=== PATIENT | female | born 1940 | race Caucasian/White ===

== ENCOUNTER → 2017-12-05 07:49 | Outpatient (CLI) | payer MEDICARE, OTHER, SELFPAY ==
--- NOTE | 2017-12-05 | DI.MRI.S_ITS ---
PROCEDURE: MR KNEE LT WO CON INDICATIONS: LEFT KNEE OSTEOARTHRITIS TECHNIQUE: Noncontrast sagittal PD fast spin echo and T2 fast spin echo with fat saturation, sagittal 3-D FLASH with fat saturation; coronal T1 spin echo and PD fast spin echo with fat saturation, and axial PD fast spin echo with fat saturation through the knee. COMPARISON: [facility], MR, KNEE W/O CONTRAST(LT), 04/13/2011, 14:09. FINDINGS: Image quality: Diagnostic. Bones and joint: There is no acute fracture or dislocation. No suspicious osseous lesions are evident. However, there is an enchondroma identified involving the distal femoral shaft, which measures up to approximately 11 mm in diameter, which is unchanged since the prior examination. No suspicious imaging characteristics are present. There is a large knee joint effusion with an associated prominent Mendoza's cyst. Mild edema about the Mendoza's cyst is present. No large intra-articular joint bodies are identified. There are moderate degenerative changes of the left knee, most pronounced within the lateral compartment. The degree of degenerative changes have increased in the interim with a moderate to large chronic appearing full thickness defects of the hyaline articular cartilage present. Developing degenerative marrow edema is evident along the lateral femoral condyle and the lateral tibial plateau. Smaller defects of the hyaline articular cartilage appear to be present within the patellofemoral and medial tibiofemoral compartments. Cruciate ligaments: The anterior cruciate ligament demonstrates increased signal and heterogeneity. No full-thickness tear is evident. The posterior cruciate ligament is intact and emonstrate slight increased signal. Menisci: There is a complex oblique tear identified involving the undersurface of the posterior horn of the lateral meniscus with moderate grade partial-thickness tearing of the posterior meniscal root. This tear transitions to a horizontal tear through the body of the medial meniscus and subsequently into an additional oblique tear that involves the femoral articular surface along the anterior horn. Mild extrusion of the body of the meniscus is present. There is an oblique tear identified involving the body and posterior horn of the medial meniscus that involves the inferior articular surface. No detached medial meniscal tears are evident. Medial structures: The medial collateral ligament is intact. The semimembranosus tendon insertion is thickened and edematous at its insertion. The imaged portions of the pes anserinus tendons are unremarkable. No significant fluid is contained within the pes anserinus bursa. Lateral structures: The popliteal tendon is thickened and edematous. The lateral collateral ligament proper (fibular collateral ligament) and the proximal tibiofibular ligaments are intact. The distal aspect of the biceps femoris tendon and the iliotibial band are intact. Anterior structures: The quadriceps and patellar tendons are intact. There is mild increased signal identified involving the proximal and distal margins of the patellar tendon. There is edema identified within the prepatellar soft tissues. There is mild edema in the infrapatellar fat pad. IMPRESSION: 1. Moderate degenerative changes of the left knee are most prominent within the lateral compartment, which have progressed in the interim. 2. Complex tearing of the medial and lateral menisci as described. 3. Moderate grade partial-thickness tearing of the anterior cruciate ligament. There may be a sprain of the posterior cruciate ligament. No full-thickness tears. 4. Moderate distal semimembranosus tendinopathy. 5. Mild patellar tendinopathy. 6. Large knee joint effusion with an associated prominent leaking Mendoza's cyst. 7. Unchanged benign enchondroma of the distal femoral shaft. Dictated by: Pradip Ayoub M.D. on 12/05/2017 at 10:00 Approved by: Pradip Ayoub M.D. on 12/05/2017 at 10:09
== END ==
PROVIDERS: PCP Family Medicine; Visit Provider Orthopaedic Surgery
DX: M17.12 Unilateral primary osteoarthritis, left knee (principal); S83.242A Other tear of medial meniscus, current injury, left knee, initial encounter; S83.282A Other tear of lateral meniscus, current injury, left knee, initial encounter; M25.462 Effusion, left knee
CPT/HCPCS: 73721

== ENCOUNTER 2018-01-03 16:21 | Observation (INO) | payer MEDICARE, OTHER, SELFPAY ==
[2017-12-20 09:55] VITALS: BMI 27.1
[2018-01-02] VITALS (13 sets, daily range): BP systolic 92–159; BP diastolic 52–98; PULSE 61–96; RESP 12–20; TEMP 36.3–36.9; O2SAT 93–98; BMI 27.1
[2018-01-02] MEDS: CELECOXIB 200 MG CAPSULE 400 MG PO (07:27)
[2018-01-02] MEDS: LACTATED RINGERS 1,000 ML 42 ML IV ×2 (07:45→09:18)
[2018-01-02] MEDS: MIDAZOLAM 2 MG/2 ML VIAL IV (07:52)
[2018-01-02] MEDS: fentaNYL 100 MCG/2 ML INJ 50 MCG IV (07:52)
--- NOTE | 2018-01-02 07:57 | PM.PREOP ---
Pre-operative Note Interval Note Pre-op Check: History & Physical Reviewed by Physician
--- NOTE | 2018-01-02 08:00 | P.OP_ITS ---
Operative Date/Time/Diagnoses - Date of procedure: 01/02/18 Time of procedure: 09:34 Pre-op diagnosis: Left knee osteoarthritis Post-op diagnosis: same Procedure & Clinicians Procedure: Left total knee arthroplasty Same procedure as scheduled: Yes Indications: The patient presents today for total knee arthroplasty after failure of conservative treatment. The nature of the procedure including the risks and benefits, alternatives, postoperative course and expected outcome were discussed and all questions answered. Consent was obtained. Operative site confirmed and marked. Surgeon: Russel Flaherty Plant Protection Guard: Jorge Rush Anesthesia Type: Spinal, Peripheral nerve block and Local Operative Notes Findings: Osteoarthritis primarily affecting the lateral compartment. Closure Type: primary Specimen(s): none sent Implants & Drains: Ambrose [employer] BCS: 5 femoral component, 3 tibial component, 9 mm BCS polyethylene tray and 32 x 9 mm round patella Applied: implant(s) Estimated Blood Loss (mL): 25 Blood products transfused: none Tourniquet time (min): 21 Procedure in detail: The patient was taken to the operative suite and placed under spinal anesthesia with an adductor nerve block. The patient was given prophylactic antibiotics prior to surgery. The patient was also given tranexamic acid, 1 g, just prior to surgery for postoperative hemostasis. [The lateral knee was prepped and the joint injected with 20 mL of 1% Lidocaine with epinephrine. ] The knee was then prepped and draped in usual sterile fashion. The leg was exsanguinated with an Esmarch dressing and the tourniquet raised to [250] torr. A 15 cm anterior incision was made. Next a medial trivector arthrotomy was made. The extensor mechanism was marked to ensure accurate repair. Initial exposing dissection was carried out medially and laterally. The knee was then extended and the patellar thickness was measured and a cut made removing approximately [9] mm of bone[ with a goal of restoring normal patellar thickness ]. The patella was then sized and drilled. Some excess lateral bone was excised and the patellofemoral ligament released. The tourniquet was then released. The knee was then flexed and the [employer] femoral guide was placed. The anterior pins were placed and the distal rotation holes drilled. The distal cutting guide was placed and the templated distal femoral cut was made. The templating cutting block was then placed and the anterior, posterior and chamfer cuts made. The [employer] tibial guide was placed and the alignment checked along the axis of the proximal tibial with a carlos a. The proximal tibial cut was then made with an oscillating saw. All meniscus and bony debris was then removed. Flexion extension gaps were checked. [No specific balancing was required other than routine exposure and removal of osteophytes]. The soft tissues were then injected with a combination of [20 mL of half percent Marcaine with epinephrine and 20 mL of Exparel]. The trial components were then placed. The knee went into full extension and flexion beyond 120?. There was [excellent] medial- lateral balance throughout motion. Patellar tracking was [excellent]. The trial components were removed and size is confirmed for the final implants. The knee was then exsanguinated with an Esmarch dressing and the tourniquet reapplied for cementing. The knee was cleansed with Pulsavac irrigation and dried. The final components were cemented in with high viscosity vacuum mixed bone cement with antibiotics. The knee was held in extension and the patellar clamp until the cement had adequately cured. The knee was then irrigated with dilute Betadine solution. The extensor mechanism was closed with 5 interrupted #1 Vicryl sutures in 90 degrees of flexion. [The joint was then injected with a combination of 1 g of tranexamic acid and 20 mL of quarter percent Marcaine with epinephrine.] The subcutaneous tissue was closed with 2-0 Vicryl. The skin was closed with [ ailyn and surgical adhesive]. [ An Aquacell] dressing and Bobby wrap were then applied. Complications: none Condition: stable Disposition: PACU Plan for aftercare: Routine protocol for total knee arthroplasty. Aspirin for DVT prophylaxis.
[2018-01-02] MEDS: CEFAZOLIN 2 GM/100 ML FROZ.PIGGY IV ×2 (08:01→16:15)
--- NOTE | 2018-01-02 08:07 | SUR.PREOP ---
Block start time [0750] . Monitoring initiated and maintained throughout procedure. Oxygen and medications given per anesthesiologist instructions. Patient remained stable throughout procedure, no adverse reactions noted. Block end time [0759 Tolerated well, remained arrousable to verbal stimuli with stable vital signs.].
[2018-01-02] MEDS: LIDOCAINE 1% W/EPI INJ 20 ML INJ (08:20)
--- NOTE | 2018-01-02 08:37 | SUR.OPER ---
Supine on padded OR bed. Pillow under head, arms secured on padded armboards <90 degree abduction. Safety belt across torso. Non-operative leg secured with tape over blanket over lower leg. Operative leg secured in [place] positioner. Foam padded brace at thigh of operative leg.
[2018-01-02] MEDS: BUPIVACAINE 0.5% W/ EPI (PF) 20 ML, BUPIVACAINE LIPOSOME 266 MG, SODIUM CHLORIDE 0.9% 8... INJ (08:52)
[2018-01-02] MEDS: BUPIVACAINE 0.5% W/ EPI (PF) 10 ML, TRANEXAMIC ACID 1,000 MG, SODIUM CHLORIDE 0.9% 20 ML INJ (09:02)
--- NOTE | 2018-01-02 09:42 | DI.RAD.S_ITS ---
PROCEDURE: XR KNEE LT 1TO2V INDICATIONS: 77 year-old female status post left knee replacement. TECHNIQUE: 2 postoperative view(s) of the knee acquired. COMPARISON: [facility] [place] Manuel, XR BONE LENGTH SCANOGRAM, 12/05/2017, 9:21. [facility] [place], [place] KNEE ARTHRITIC SERIES BI, 08/09/2017, 9:44. FINDINGS: Bones: Patient is status post knee joint arthroplasty. Hardware components are in expected positions. Visualized bony structures are intact. Soft tissues: Overlying postoperative changes are noted including intra-articular gas and skin ailyn. IMPRESSION: Status post left knee arthroplasty, with hardware components in expected positions. Dictated by: Stephane Bean M.D. on 01/02/2018 at 10:00 Approved by: Stephane Bean M.D. on 01/02/2018 at 10:01
[2018-01-02] MEDS: ACETAMINOPHEN 325 MG TABLET 650 MG PO ×2 (13:07→17:42)
[2018-01-02] MEDS: OXYCODONE IR 10 MG TABLET PO ×3 (14:10→17:36)
[2018-01-02] MEDS: OXYCODONE IR 5 MG TABLET 15 MG PO (15:45)
[2018-01-02] MEDS: ONDANSETRON 4 MG ODT PO (17:35)
--- NOTE | 2018-01-02 17:37 | PT.IIE ---
Current Diagnoses Unilateral primary osteoarthritis, left knee (01/02/18) Surgery Performed Operation Date: 01/02/18 07:45 Actual Procedures p Total Knee Arthroplasty(Left) - Russel Flaherty MD Surgical History (Last Updated 12/20/17 @ 10:13 by Misty Cooney, RN) History of bilateral cataract extraction (Acute) History of carpal tunnel surgery of right wrist (Acute) History of total left hip arthroplasty (Acute) History of total right hip arthroplasty (Acute) Hx of shoulder surgery (Acute) Hx of tonsillectomy (Acute) Medical History (Last Updated 12/20/17 @ 10:12 by Misty Cooney RN) Asthma (Acute) Bilateral knee pain (Acute) Chronic neck and back pain (Acute) Constipation (Acute) Diverticulitis (Acute) Elevated blood-pressure reading without diagnosis of hypertension (Acute) Osteoarthritis (Acute) RBBB (right bundle branch block) (Acute) Sinus drainage (Acute) UTI (urinary tract infection) (Acute) Urinary leakage (Acute) Physical Therapy Inpatient Evaluation/Re-Eval M1 PT/OT-IP Prior Functional Status Start: 01/02/18 17:22 Freq: NEEDED Status: Active Protocol: Document 01/02/18 16:50 DCW (Rec: 01/02/18 17:36 [facility] [id number]) Medical Review Prior Functional Status Medical History Reviewed Yes Social History Household Members friend(s) Living Arrangements House Number of Floors (Floors) Two Floors Number of Stairs To Enter/Railing? 0 M2 PT-IP Current Condition Start: 01/02/18 17:22 Freq: NEEDED Status: Active Protocol: Document 01/02/18 16:50 DCW (Rec: 01/02/18 17:36 DC [id number]) Physical Therapy Current Condition Current Condition Evaluation Date 01/02/18 Treatment Diagnosis Left TKA Onset Date t Weight Bearing Status Weight Bearing Status Weight Bear as Tolerated M3 PT-IP Subjective Start: 01/02/18 17:22 Freq: NEEDED Status: Active Protocol: Document 01/02/18 16:50 DCW (Rec: 01/02/18 17:36 DC [id number]) Subjective Physical Therapy Visit Type Type Initial Evaluation Visit Start Time 16:50 Visit Stop Time 17:18 Total Visit Minutes 28 Number of DRY CLEANER Visits 0 Physical Therapy Visit Comments Patient Comments Pt initially willing to get up and walk, but her bed was stuck elevated at its highest position. By the time her bed was fixed, pt began feeling nauseated and vomiting once again. Therapy Pain Assessment Pain When Pain Assessed At Rest Pain Present Pain Present Pain Reported Location Left Knee Intensity 5 Scale Used Numeric (1 - 10) Pain Management Techniques Apply Cold Timing of Activity with Medications M5 PT-IP Objective Assessments Start: 01/02/18 17:22 Freq: NEEDED Status: Active Protocol: Document 01/02/18 16:50 DCW (Rec: 01/02/18 17:36 DC [id number]) Orientation Orientation/Cognition Level of Alertness Alert Orientation Name Birthday Date Place Situation Gross Range of Motion Lower Extremity ROM Assessment Left Impaired Impairments Left knee AROM 14-85? Strength Lower Extremity Strength Assessment Left Impaired Knee At least 3/5, pt moves leg against gravity M6 PT-IP Treatment Start: 01/02/18 17:22 Freq: NEEDED Status: Active Protocol: Document 01/02/18 16:50 DCW (Rec: 01/02/18 17:36 DCW [id number]) Physical Therapy Treatment Exercises Exercises Ankle Pumps Gluteal Sets Heel Slides Straight Leg Raises Short Arc Quads Passive Knee Extension Hang Education Education Provided Precautions Weight Bearing Status Post-Op Packet Safety M7 PT-IP Assessment and Plan Start: 01/02/18 17:22 Freq: NEEDED Status: Active Protocol: Document 01/02/18 16:50 DCW (Rec: 01/02/18 17:36 [facility] [id number]) PT Summary Assessment and Plan Potential Rehabilitation Potential Good Status of Condition at Evaluation Unstable Summary Impairments Pain ROM Strength Bed Mobility Transfers Gait Activity Tolerance Assessment Summary Pt unable to perform bed mobility, transfers, or gait today on day of surgery due to constant nausea and vomiting. Pt was able to tolerate instruction in post-op HEP, but requested therapist return tomorrow morning for gait and mobility training. Pt currently shows appropriate ROM, and her strength is at least 3/5, with good quad contraction and the ability to lift entire left leg against gravity. Pt is already scheduled for out-patient therapy near her home in [facility]. Goals Bed Mobility Goal Independent Transfer Goal Independent Gait Goal Standby Assistance Front Wheel Walker Gait Distance 200' Other Goals Ascend/descend 3 steps x4 SBA /c appropriate technique, single rail Days to Meet Goals 2 Frequency of Treatment Frequency Of Treatment Twice a Day Treatment Plan Physical Therapy Treatment Plan Bed Mobility Training Transfer Training Gait Training Therapeutic Exercise Balance Retraining Post Op Education Discharge Planning Discharge Recommendations PT Discharge Recommendations Home with Assistance Outpatient PT Provider Visit Care Team Role Provider Type Riley Monroy MD Primary Care Provider Non-Staff Specialty: Medical Russel Flaherty MD Attending Provider Physician Specialty: Orthopedics
--- NOTE | 2018-01-02 17:51 | PC.NURSE ---
Addendum entered by Alexandra Oliveira R.N. 01/02/18 21:26: 2130- Pt resting in bed with eyes closed. No nausea, rates pain 3/10. earlier at 1999, pt voided using bed damian for 200mL clear yellow urine. Original Note: Addendum entered by Alexandra Oliveira R.N. 01/02/18 21:24: 1730- Pt vomited the second percolone 5mg during this reassess of nausea. Pt given percolone at 1715 for c/o pain 4/10. Original Note: Nuha shift- Pt medicated with 1 percolone 5mg 1545, during PT pt vomited, and vomited the percolone up. C/O pain @ 1715 and nausea 1720, then vomited 100mL emesis. Obtaining new orders for IV zofran and pain medication. 1755- Pt currently resting in bed. 96% RA, LS clear, BT hypoactive, CMS ++ full sensation, call light in reach
[2018-01-02] MEDS: ASPIRIN EC 81 MG TABLET PO (21:31)
[2018-01-03] VITALS (7 sets, daily range): BP systolic 141–157; BP diastolic 70–88; PULSE 70–89; RESP 16–18; TEMP 36.3–37.3; O2SAT 92–95; BMI 27.1
[2018-01-03] MEDS: CEFAZOLIN 2 GM/100 ML FROZ.PIGGY IV (00:49)
[2018-01-03] MEDS: OXYCODONE IR 10 MG TABLET PO (00:58)
[2018-01-03] MEDS: ONDANSETRON 4 MG ODT PO ×2 (01:02→13:27)
--- NOTE | 2018-01-03 01:09 | PC.NURSE ---
Addendum entered by Lois Doyle R.N. 01/03/18 05:49: Slept well after receiving IV Dilaudid. Did have 50cc emesis earlier with movement of using bedpan but currently has nausea but no further emesis. Is complaining of 5/10 pain and not wanting to try any po medication so medicated with 1mg Dilaudid and ice pack applied. SCD's off for past hour and now replaced. Original Note: Addendum entered by Lois Doyle R.N. 01/03/18 01:39: Patient had 150cc light bile colored emesis. Still complains of 5-6/10 left knee pain and uncertain if Oxycodone had been absorbed prior to emesis so medicated with 1mg of IV Dilaudid. Original Note: Sleeping at shift change but now awake and is alert and oriented. Breath sounds CTA with RA sat of 94%. HRR. Denies nausea currently; did not have Zofran at 2200 so administered now prior to giving pain meds as patient has been unable to keep pain meds down earlier. States left knee pain is currently 5/10 so medicated with Oxycodone but declines scheduled Tylenol. BT hypoactive but states she is passing flatus. Denies dysuria, frequency or urgency; has been using bedpan when needs to urinate. Able to move self in bed. Bobby/Aquacel dressings are CDI. CMS intact. Wearing bilateral SCD's. Fall risk score is medium; bed alarm is activated.
[2018-01-03] MEDS: HYDROMORPHONE 2 MG INJ IV ×2 (01:31→05:43)
[2018-01-03 06:04] LABS: Hematocrit 38.2 % (36-46); Hemoglobin 13.1 g/dL (12.0-16.0)
--- NOTE | 2018-01-03 08:46 | PM.PNPO.1 ---
Subjective Date Patient Seen: 01/03/18 Time Patient Seen: 08:47 Interval history: Patient was seen status post left TKA postop day 1. Patient is complaining of nausea and vomiting. IV Compazine was ordered as needed. Patient states that she cannot eat as of yet. She has not been able to work with physical therapy due to the nausea. She is also complaining of itching. This is likely due to the narcotics. Exam Vital Signs (past 8 hours): Vital Signs - 8 hr 01/03/18 04:36 01/03/18 08:07 Temperature 97.4 F L 97.9 F Pulse Rate 72 79 Respiratory Rate 16 18 Blood Pressure 157/74 H 141/79 H Pulse Oximetry 92 95 Pulse Oximetry 95 Oxygen Delivery Method Room Air Oxygen Flow Rate 0 Narrative Exam Narrative: Patient is well-developed well-nourished in no acute distress. Patient alert oriented x3. On exam left knee dressing is clean dry and intact. Mild edema and ecchymosis the surgical leg. She is neurovascularly intact this extremity, calf is soft and compressible and she has full range of motion of the foot and ankle. Objective Labs Result Diagrams: 01/03/18 05:35 Labs: Laboratory Results - last 24 hr 01/03/18 05:35 Hgb 13.1 Hct 38.2 Assessment & Plan Post-op Postoperative Procedures Operation Date: 01/02/18 07:45 Actual Procedures Side Surgeon p Total Knee Arthroplasty Left Russel Flaherty MD Patient is postop day 1 status post left TKA. The patient like to go home today, however, she must get her nausea under control and be able to eat. Will continue IV fluids at this time. These may be d/c when she is tolerating oral intake. Pain medications were changed to see if this helps with her nausea. Discharge probably be tomorrow. All questions answered at the time of the exam. Time Spent With Patient less than 15 minutes Quality VTE Deep Vein Thrombosis/Pulmonary Embolism Present on Admission: No
--- NOTE | 2018-01-03 08:49 | P.PN_ITS ---
Subjective Date Patient Seen: 01/03/18 Time Patient Seen: 08:47 Interval history: Patient was seen status post left TKA postop day 1. Patient is complaining of nausea and vomiting. IV Compazine was ordered as needed. Patient states that she cannot eat as of yet. She has not been able to work with physical therapy due to the nausea. She is also complaining of itching. This is likely due to the narcotics. Exam Vital Signs (past 8 hours): Vital Signs - 8 hr 3 01/03/18 04:36 01/03/18 08:07 Temperature 97.4 F L 97.9 F Pulse Rate 72 79 Respiratory Rate 16 18 Blood Pressure 157/74 H 141/79 H Pulse Oximetry 92 95 Pulse Oximetry 95 Oxygen Delivery Method Room Air Oxygen Flow Rate 0 Narrative Exam Narrative: Patient is well-developed well-nourished in no acute distress. Patient alert oriented x3. On exam left knee dressing is clean dry and intact. Mild edema and ecchymosis the surgical leg. She is neurovascularly intact this extremity, calf is soft and compressible and she has full range of motion of the foot and ankle. Objective Labs Result Diagrams: 01/03/18 05:35 Labs: Laboratory Results - last 24 hr 01/03/18 05:35 Hgb 13.1 Hct 38.2 Assessment & Plan Post-op Postoperative Procedures Operation Date: 01/02/18 07:45 Actual Procedures Side Surgeon p Total Knee Arthroplasty Left Russel Flaherty MD Patient is postop day 1 status post left TKA. The patient like to go home today , however, she must get her nausea under control and be able to eat. Will continue IV fluids at this time. These may be d/c when she is tolerating oral intake. Pain medications were changed to see if this helps with her nausea. Discharge probably be tomorrow. All questions answered at the time of the exam. Time Spent With Patient less than 15 minutes Quality VTE Deep Vein Thrombosis/Pulmonary Embolism Present on Admission: No
[2018-01-03] MEDS: PROCHLORPERAZINE 10 MG/2 ML VIAL 5 MG IV (09:38)
[2018-01-03] MEDS: LACTATED RINGERS 1,000 ML 42 ML IV ×2 (10:05→13:32)
[2018-01-03] MEDS: CELECOXIB 100 MG CAPSULE PO ×2 (13:27→21:04)
[2018-01-03] MEDS: ASPIRIN EC 81 MG TABLET PO ×2 (13:28→21:04)
[2018-01-03] MEDS: HYDROCODONE/ACET 5/325 TABLET 1 TAB PO (13:28)
--- NOTE | 2018-01-03 13:44 | PT.IPTN ---
Current Diagnoses Unilateral primary osteoarthritis, left knee (01/02/18) Surgery Performed Operation Date: 01/02/18 07:45 Actual Procedures p Total Knee Arthroplasty(Left) - Russel Flaherty MD Physical Therapy Treatment Note M2 PT-IP Current Condition Start: 01/02/18 17:22 Freq: NEEDED Status: Active Protocol: Document 01/02/18 16:50 DCW (Rec: 01/02/18 17:36 DCW [id number]) Physical Therapy Current Condition Current Condition Evaluation Date 01/02/18 Treatment Diagnosis Left TKA Onset Date t Weight Bearing Status Weight Bearing Status Weight Bear as Tolerated M3 PT-IP Subjective Start: 01/02/18 17:22 Freq: NEEDED Status: Active Protocol: Document 01/03/18 12:03 AB (Rec: 01/03/18 12:15 AB [id number]) Subjective Physical Therapy Visit Type Type Treatment Note Visit Start Time 11:19 Visit Stop Time 11:55 Total Visit Minutes 36 Number of SQL SERVER DBA DEVELOPER Visits 0 Physical Therapy Visit Comments Patient Comments continues to c/o nausea Therapy Pain Assessment Pain When Pain Assessed At Rest Pain Present Pain Present Pain Reported Location Left Knee Intensity 6 Scale Used Numeric (1 - 10) Pain Management Techniques Apply Cold Re-positioning M4 PT-IP Mobility and Gait Start: 01/02/18 17:22 Freq: NEEDED Status: Active Protocol: Document 01/03/18 12:03 AB (Rec: 01/03/18 12:15 AB [id number]) PT-Bed Mobility Assessment Supine to Sit Supine to Sit Moderate Assistance Scooting Scooting to Edge of Bed Maximum Assistance PT-Transfer Assessment Sit to and From Stand Sit to and from Stand Maximum Assistance Equipment Transfer Assistive Device Gait Belt Front Wheeled Walker Transfers Transfer Destination Chair Toilet Gait Assessment Gait Gait Assistance Required: Moderate Assistance Distance (Feet) (feet) 10 Able to Maintain Weight Bearing Status Yes During Gait Assistive Devices Assistive Device Gait Belt Front Wheeled Walker Orthotic/Prosthetic Devices or Brace: No Gait Deviations General Gait Pattern Antalgic Decreased Stride Length Decreased Feet Clearance Step-to Gait Factors Limiting Gait Function Factors Limiting Gait Function Decreased Activity Tolerance Decreased Strength Limited Range of Motion Pain Poor Balance Poor Safety Awareness PT-Balance Assessment Sitting Balance and Reactions Static Sitting Balance Ability Good Dynamic Sitting Balance Ability Fair Standing Balance and Reactions Static Standing Balance Ability Fair Dynamic Standing Balance Ability Fair M5 PT-IP Objective Assessments Start: 01/02/18 17:22 Freq: NEEDED Status: Active Protocol: Document 01/02/18 16:50 DCW (Rec: 01/02/18 17:36 DCW [id number]) Orientation Orientation/Cognition Level of Alertness Alert Orientation Name Birthday Date Place Situation Gross Range of Motion Lower Extremity ROM Assessment Left Impaired Impairments Left knee AROM 14-85? Strength Lower Extremity Strength Assessment Left Impaired Knee At least 3/5, pt moves leg against gravity M6 PT-IP Treatment Start: 01/02/18 17:22 Freq: NEEDED Status: Active Protocol: Document 01/03/18 12:03 AB (Rec: 01/03/18 12:15 AB [id number]) Physical Therapy Treatment Education Education Provided Weight Bearing Status Safety M7 PT-IP Assessment and Plan Start: 01/02/18 17:22 Freq: NEEDED Status: Active Protocol: Document 01/03/18 12:03 AB (Rec: 01/03/18 12:15 AB [id number]) PT Summary Assessment and Plan Potential Rehabilitation Potential Fair Summary Impairments Pain ROM Strength Balance Cognition Bed Mobility Transfers Gait Activity Tolerance Progress Towards Goals Slow Progress due to Medical Issues Assessment Summary pt requiring mod to max A with mobility and pt stated that her friend will be able to assist her. d/c plan depending on caregiver being able to provide safe assistance. stair training will be conducted prior to d/c Goals Bed Mobility Goal Independent Transfer Goal Independent Gait Goal Standby Assistance Front Wheel Walker Gait Distance 200' Other Goals Ascend/descend 3 steps x4 SBA /c appropriate technique, single rail Days to Meet Goals 3 Frequency of Treatment Frequency Of Treatment Twice a Day Treatment Plan Physical Therapy Treatment Plan Bed Mobility Training Transfer Training Gait Training Therapeutic Exercise Balance Retraining Post Op Education Discharge Planning Other Recommendations and Next Treatment bed mobility, ambulation, Focus caregiver training, stair climbing training. Recommendations To Nursing Amount of Assist Needed 1 Person Assist Discharge Recommendations PT Discharge Recommendations Home with Assistance Home Health SNF Rehab Outpatient PT
--- NOTE | 2018-01-03 15:56 | PT.IPTN ---
Current Diagnoses Unilateral primary osteoarthritis, left knee (01/02/18) Surgery Performed Operation Date: 01/02/18 07:45 Actual Procedures p Total Knee Arthroplasty(Left) - Russel Flaherty MD Physical Therapy Treatment Note M2 PT-IP Current Condition Start: 01/02/18 17:22 Freq: NEEDED Status: Active Protocol: Document 01/02/18 16:50 DCW (Rec: 01/02/18 17:36 DCW [id number]) Physical Therapy Current Condition Current Condition Evaluation Date 01/02/18 Treatment Diagnosis Left TKA Onset Date t Weight Bearing Status Weight Bearing Status Weight Bear as Tolerated M3 PT-IP Subjective Start: 01/02/18 17:22 Freq: NEEDED Status: Active Protocol: Document 01/03/18 15:42 AB (Rec: 01/03/18 15:56 AB [email or web address]) Subjective Physical Therapy Visit Type Type Treatment Note Visit Start Time 14:40 Visit Stop Time 15:05 Total Visit Minutes 25 Number of REAL ESTATE AGENCY PRINCIPAL Visits 0 Physical Therapy Visit Comments Patient Comments pt wanting to go back to bed Therapy Pain Assessment Pain When Pain Assessed During Mobility Pain Present Pain Present Pain Reported Location Left Knee Scale Used pain scale not stated M4 PT-IP Mobility and Gait Start: 01/02/18 17:22 Freq: NEEDED Status: Active Protocol: Document 01/03/18 15:42 AB (Rec: 01/03/18 15:56 AB [id number]) PT-Bed Mobility Assessment Sit to Supine Sit to Supine Standby Assistance PT-Transfer Assessment Sit to and From Stand Sit to and from Stand Moderate Assistance Equipment Transfer Assistive Device Gait Belt Front Wheeled Walker Orthotic/Prosthetic Devices or Brace: No Gait Assessment Gait Gait Assistance Required: Minimum Assistance Distance (Feet) (feet) 12 Able to Maintain Weight Bearing Status Yes During Gait Assistive Devices Assistive Device Gait Belt Front Wheeled Walker Gait Deviations General Gait Pattern Antalgic Decreased Stride Length Decreased Feet Clearance Factors Limiting Gait Function Factors Limiting Gait Function Decreased Activity Tolerance Decreased Strength Difficulty Following Directions Pain Poor Balance Poor Safety Awareness Comments Gait Comments requires cues with all tasks for safety M5 PT-IP Objective Assessments Start: 01/02/18 17:22 Freq: NEEDED Status: Active Protocol: Document 01/02/18 16:50 DCW (Rec: 01/02/18 17:36 DCW [id number]) Orientation Orientation/Cognition Level of Alertness Alert Orientation Name Birthday Date Place Situation Gross Range of Motion Lower Extremity ROM Assessment Left Impaired Impairments Left knee AROM 14-85? Strength Lower Extremity Strength Assessment Left Impaired Knee At least 3/5, pt moves leg against gravity M6 PT-IP Treatment Start: 01/02/18 17:22 Freq: NEEDED Status: Active Protocol: Document 01/03/18 12:03 AB (Rec: 01/03/18 12:15 AB [id number]) Physical Therapy Treatment Education Education Provided Weight Bearing Status Safety M7 PT-IP Assessment and Plan Start: 01/02/18 17:22 Freq: NEEDED Status: Active Protocol: Document 01/03/18 15:42 AB (Rec: 01/03/18 15:56 AB [email or web address]) PT Summary Assessment and Plan Potential Rehabilitation Potential Fair Summary Impairments Pain ROM Strength Balance Sensation Cognition Bed Mobility Transfers Gait Activity Tolerance Progress Towards Goals Slow Progress - Other Assessment Summary pt required one person mod A with mobility and cues for safety. informed pt regarding caregiver training and to inform her friend about the training. pt stated that her friend is older than her. pt also has 14 steps to get to bedroom level with L rail ascending on first half and R rail ascending on 2nd half. D/ C plan depending on assistance pt's friend will be able to provide and stair climbing training but at this time may require SNF rehab. Goals Bed Mobility Goal Independent Transfer Goal Independent Gait Goal Standby Assistance Front Wheel Walker Gait Distance 200' Other Goals Ascend/descend 3 steps x4 SBA /c appropriate technique, single rail Days to Meet Goals 3 Frequency of Treatment Frequency Of Treatment Twice a Day Treatment Plan Physical Therapy Treatment Plan Bed Mobility Training Transfer Training Gait Training Therapeutic Exercise Balance Retraining Post Op Education Discharge Planning Other Recommendations and Next Treatment bed mobility, ambulation, Focus caregiver training, stair climbing training. Recommendations To Nursing Amount of Assist Needed 1 Person Assist Discharge Recommendations PT Discharge Recommendations SNF Rehab
[2018-01-03] MEDS: HYDROCODONE/ACET 10/325 TABLET 1 TAB PO ×2 (17:16→23:42)
[2018-01-04 00:38] VITALS: BP 142/70; PULSE 80; RESP 16; TEMP 36.2; O2SAT 98
[2018-01-04 06:22] VITALS: BP 155/72; PULSE 76; RESP 16; TEMP 36.6; O2SAT 96
--- NOTE | 2018-01-04 06:53 | PC.NURSE ---
Assumed care of pt from outgoing shift at 2300 6-14. Pt awake and alert. compliant with nursing assessments. complains of pain. up to BSC with SBA. bed alarm on, side rails up x2. Pt belongings and call light within reach. denies further needs at this time. will continue to monitor pt for safety.
[2018-01-04] MEDS: HYDROCODONE/ACET 10/325 TABLET 1 TAB PO ×2 (07:39→12:37)
[2018-01-04 07:48] VITALS: BP 150/64; PULSE 83; RESP 16; TEMP 36.6; O2SAT 94
--- NOTE | 2018-01-04 09:49 | P.DS_ITS ---
History of Present Illness Date Patient Seen: 01/04/18 Time Patient Seen: 09:43 Chief complaint: *[id number] Narrative: Patient is a 77-year-old female with a history of left knee osteoarthritis. She failed conservative measures and elected to have a left total knee arthroplasty by Dr. Flaherty at [facility]. Discharge Providers Date of admission: 01/03/18 16:21 Primary care physician: Riley Monroy MD Consults: 01/02/18 09:42 Consult to Discharge Planning Routine Comment: Consult to Physical Therapy Evaluate & Treat Comment: Physician Instructions: postop TKA protocol Consult to Respiratory Therapy Evaluate & Treat Comment: Physician Instructions: Evaluate and treat 01/02/18 22:30 Consult to Dietitian, Adult Routine Comment: Reason For Exam: assessed at high risk Discharge provider: Gala Nevarez PA-C Summary Discharge Diagnosis: Left knee osteoarthritis Hospital Course: Patient was admitted taken operating room she had a left total knee arthroplasty by Dr. Flaherty. Postop day 1 she had a lot of nausea and vomiting. She is given IV Compazine for nausea. Postop day 2 patient's nausea resolved and she was feeling well. Patient is pain was under control, she was ambulating well and voiding without any issues. She was ready to be discharged discharge Status at Discharge Cognitive/behavioral status at discharge: Alert and orient x3 Functional status at discharge: uses cane/walker Overall status at discharge: patient is progressing back to baseline Time Spent with Patient Less than 30 minutes Exam Vital Signs (past 8 hours): Vital Signs - 8 hr 3 01/04/18 06:22 01/04/18 07:48 Temperature 97.8 F 97.9 F Pulse Rate 76 83 Respiratory Rate 16 16 Blood Pressure 155/72 H 150/64 H Pulse Oximetry 96 94 Pulse Oximetry 94 Oxygen Delivery Method Room Air Oxygen Flow Rate 0 Narrative Exam Narrative: Patient sitting in chair. Left knee dressing to clean dry and intact. Minimal swelling in left knee. Bilateral calf soft and nontender. 5/5 left ankle strength. Neurovascular status intact. Patient alert and orient x3. Objective Labs Result Diagrams: 01/03/18 05:35 Discharge Plan Discharge Plan Patient Disposition: Home, Self-Care Discharge comment: Prescription for promethazine as needed for nausea. Did not take it at the same time as Vistaril. Start physical therapy next week. Take aspirin 81 mg twice a day for total 6 weeks. Discharge Med Rec/Prescriptions Prescriptions: New promethazine 12.5 mg tablet 12.5 mg PO Q6H PRN (Reason: nausea and vomiting) Qty: 30 RF: 0 aspirin 81 mg Tablet,Delayed Release (Dr/Ec) 81 mg PO BID Qty: 0 RF: 0 hydrocodone-acetaminophen 5-325 mg Tablet 1 tab PO Q4HR PRN (Reason: Pain, Moderate) Qty: 0 RF: 0 celecoxib [Celebrex] 100 mg Capsule 100 mg PO BID Qty: 0 RF: 0 hydroxyzine pamoate 25 mg Capsule 25 mg PO Q4-6H PRN (Reason: Nausea) Qty: 40 RF: 0 Continue celecoxib [Celebrex] 200 mg Capsule 200 mg PO DAILY RF: 0 acetaminophen [Tylenol Extra Strength] 500 mg Tablet 1 - 3 tab PO DAILY PRN (Reason: pain) RF: 0 zolpidem 10 mg Tablet 5 mg PO BEDTIME PRN (Reason: Sleep) RF: 0 Discontinued tramadol 50 mg Tablet 25 mg PO BID PRN (Reason: pain) RF: 0 Follow up/Referrals: [facility] [Provider Group] - 01/08/18 2:40 pm (with Jorge Rush PA-C at the [facility]) Provider Discharge Instructions Diet: Diet as Tolerated Activity: WBAT, elevate affected leg regularly Cold/Heat Therapy: Apply ice to affected leg for 20 minutes every hour. Wound Care Report to your healthcare provider any signs of infection, such as:: chills, fever, night sweats, increased pain and unusual drainage Dressing: Keep dressing CDI, may shower but no soaking. Visit Report/Discharge Packet Instructions: DI for Knee Replacement Stand Alone Forms: Surgery Discharge Discharge Data Primary Care Provider: Riley Monroy Attending Provider: Russel Flaherty Admit Date/Time: 01/03/18 16:21 Quality VTE Deep Vein Thrombosis/Pulmonary Embolism Present on Admission: No
[2018-01-04] MEDS: CELECOXIB 100 MG CAPSULE PO (10:56)
[2018-01-04] MEDS: ASPIRIN EC 81 MG TABLET PO (10:56)
--- NOTE | 2018-01-04 11:31 | PT.IPTN ---
Current Diagnoses Unilateral primary osteoarthritis, left knee (01/03/18) Surgery Performed Operation Date: 01/02/18 07:45 Actual Procedures p Total Knee Arthroplasty(Left) - Russel Flaherty MD Physical Therapy Treatment Note M2 PT-IP Current Condition Start: 01/02/18 17:22 Freq: NEEDED Status: Active Protocol: Document 01/02/18 16:50 DCW (Rec: 01/02/18 17:36 DCW [id number]) Physical Therapy Current Condition Current Condition Evaluation Date 01/02/18 Treatment Diagnosis Left TKA Onset Date t Weight Bearing Status Weight Bearing Status Weight Bear as Tolerated M3 PT-IP Subjective Start: 01/02/18 17:22 Freq: NEEDED Status: Active Protocol: Document 01/04/18 11:20 AB (Rec: 01/04/18 11:29 AB [id number]) Subjective Physical Therapy Visit Type Type Treatment Note Visit Start Time 10:02 Visit Stop Time 10:52 Total Visit Minutes 50 Number of CLINIC CLERK Visits 0 Physical Therapy Visit Comments Patient Comments pt agreeable to do therapy. pt 's friend present for caregiver training Therapy Pain Assessment Pain When Pain Assessed During Mobility Pain Present Pain Present Pain Reported Location Left Knee Intensity 6 Scale Used Numeric (1 - 10) Pain Management Techniques Apply Cold Timing of Activity with Medications M4 PT-IP Mobility and Gait Start: 01/02/18 17:22 Freq: NEEDED Status: Active Protocol: Document 01/04/18 11:20 AB (Rec: 01/04/18 11:29 AB [id number]) PT-Bed Mobility Assessment Supine to Sit Supine to Sit Standby Assistance Sit to Supine Sit to Supine Standby Assistance PT-Transfer Assessment Sit to and From Stand Sit to and from Stand Contact Guard Assistance Transfers Transfer Destination Bed Chair Toilet Transfer Technique Stand Step Pivot Transfer Ability Level of Assist Contact Guard Assistance Gait Assessment Gait Gait Assistance Required: Contact Guard Assist Distance (Feet) (feet) 40 Able to Maintain Weight Bearing Status Yes During Gait Assistive Devices Assistive Device Gait Belt Front Wheeled Walker Orthotic/Prosthetic Devices or Brace: No Gait Deviations General Gait Pattern Antalgic Decreased Stride Length Decreased Feet Clearance Factors Limiting Gait Function Factors Limiting Gait Function Decreased Activity Tolerance Decreased Strength Difficulty Following Directions Limited Range of Motion Pain Poor Balance Poor Safety Awareness Comments Gait Comments caregiver training conducted and pt's friend was able to provide necessary assistance to pt. pt plans to stay on main 1st level of the house and does not have any steps to enter. M5 PT-IP Objective Assessments Start: 01/02/18 17:22 Freq: NEEDED Status: Active Protocol: Document 01/02/18 16:50 DCW (Rec: 01/02/18 17:36 DCW [id number]) Orientation Orientation/Cognition Level of Alertness Alert Orientation Name Birthday Date Place Situation Gross Range of Motion Lower Extremity ROM Assessment Left Impaired Impairments Left knee AROM 14-85? Strength Lower Extremity Strength Assessment Left Impaired Knee At least 3/5, pt moves leg against gravity M6 PT-IP Treatment Start: 01/02/18 17:22 Freq: NEEDED Status: Active Protocol: Document 01/04/18 11:29 AB (Rec: 01/04/18 11:30 AB [id number]) Physical Therapy Treatment Education Education Provided Weight Bearing Status Post-Op Packet Safety Other Treatments Other Treatment Performed caregiver training conducted. educated on how to angelic/doff safety belt and how to assist pt. M7 PT-IP Assessment and Plan Start: 01/02/18 17:22 Freq: NEEDED Status: Active Protocol: Document 01/04/18 11:20 AB (Rec: 01/04/18 11:29 AB [id number]) PT Summary Assessment and Plan Potential Rehabilitation Potential Fair Summary Impairments Pain ROM Strength Balance Cognition Bed Mobility Transfers Gait Activity Tolerance Progress Towards Goals Slow Progress due to Activity Tolerance Assessment Summary caregiver training conducted and pt's friend was able to assist pt safely. pt wanting to go home today and may go home when medically stable with assist and will need outpatient PT. Goals Bed Mobility Goal Independent Transfer Goal Independent Gait Goal Independent Gait Distance 125 Days to Meet Goals 3 Frequency of Treatment Frequency Of Treatment Twice a Day Treatment Plan Physical Therapy Treatment Plan Bed Mobility Training Transfer Training Gait Training Therapeutic Exercise Balance Retraining Post Op Education Discharge Planning Hot or Cold Pack Neuromuscular Re-ed Manual Therapy Other Recommendations and Next Treatment ambulation Focus Recommendations To Nursing Amount of Assist Needed 1 Person Assist Discharge Recommendations PT Discharge Recommendations Home with 24/7 Assist Outpatient PT
== END 2018-01-04 13:43 | disposition home or self-care (01) ==
LOC: OR 01-04 07:34
PROVIDERS: Admitting Provider Orthopaedic Surgery; PCP Family Medicine; Visit Provider Orthopaedic Surgery
PROC: 0SRD0JZ Replacement of Left Knee Joint with Synthetic Substitute, Open Approach (ICD-10-PCS; CPT 27447; principal; 2018-01-02 07:45)
DX: M17.12 Unilateral primary osteoarthritis, left knee (principal); I45.10 Unspecified right bundle-branch block; J45.909 Unspecified asthma, uncomplicated; G89.18 Other acute postprocedural pain
CPT/HCPCS: 27447; 36415; 64450; 73560; 85014; 85018; 97161; 97530; C1776; G0378; C9290; J0690; J0780; J1170; J2250; J2704; J3010